=== PATIENT | male | born 1985 | race Caucasian/White ===

== ENCOUNTER → 2018-02-28 | Day surgery (SDC) | payer OTHER ==
[~2018-02-28] MED LIST: Iopamidol-M 200 41% 20 ML VIAL ONE
[2018-02-28 07:48] VITALS: TEMP 97.1; BMI 26.1
--- NOTE | 2018-02-28 09:16 | RAD ---
LUMBAR SPINE MYELOGRAM: INDICATION: Lumbar radiculopathy. FLUOROSCOPY DATA: Intermittent fluoroscopy for 0.2 minutes. 33 mGy per M2. PROCEDURE: After informed consent had been obtained, the patient was escorted to the interventional suite and pl aced on the procedural table. Filtrose Crusher imaging was performed. The patient was placed into a prone posi tion. Skin on the low back was then prepped and draped in the standard sterile fashion and topical a nd regional soft tissue anesthesia was achieved with 1% lidocaine and sodium bicarbonate. L2-L3 right interlaminar approach was selected, and a 22 gauge needle was uneventfully advanced into the thecal sac with clear color CSF. Subsequently, 8 cc Isovue-M200 was instilled into the thecal sac under da l time fluoroscopy. Appropriate opacification of thecal sac demonstrated with imaging stored for con firmation. The needle was then removed from the patient. The patient tolerated the procedure well a nd was then transferred to CT to undergo subsequent myelogram. Reference separate report for full de tails. IMPRESSION: Technically successful lumbar myelogram as detailed above. POS: [facility]
--- NOTE | 2018-02-28 09:26 | CT ---
CT LUMBAR SPINE WITH CONTRAST: CT LUMBAR MYELOGRAM: CLINICAL HISTORY: Low back pain. Lumbar disk degeneration. Prior lumbar surgery. TECHNIQUE: Please reference separate report for procedural details of the patient's preceding fluoroscopic myelo gram of the lumbar spine. FINDINGS: The vertebral body heights of the lumbar spine are maintained. There is an intervertebral disk space device at L5-S1. There is mild associated disk space narrowing as well as endplate sclerosis of inf erior L5 and superior S1. No subluxation. There is left-sided posterior fusion of L4 and L5 without hardware complication identified. L5-S1: There is no significant compromise of the central canal. There is mild bilateral facet hyper trophy. No high grade foraminal stenosis. L4-L5: There is a broad-based disk bulge, as well as a mild osteophyte ridge, which results in mild central canal stenosis. Mild crowding of the bilateral nerve roots within the subarticular zones. N o high grade foraminal stenosis. L3-L4: There is no high grade central canal or foraminal stenosis. L2-L3: No high grade central canal or neural foraminal narrowing. L1-L2: No high grade central canal or neural foraminal stenosis. The conus medullaris is normal in morphology and terminates at the L1-L2 level. IMPRESSION: 1. Postoperative findings of the lumbosacral spine. 2. There is mild disk degenerative disease at L4-L5. POS: [facility]
== END ==
LOC: EDSTATUS 02-16 08:00 → RAD 07:20
PROVIDERS: ATTEND Neurological Surgery
PROC: B02B1ZZ Computerized Tomography (CT Scan) of Spinal Cord using Low Osmolar Contrast (ICD-10-PCS; principal; 2018-02-28)
DX: M51.36 Other intervertebral disc degeneration, lumbar region (principal); F17.210 Nicotine dependence, cigarettes, uncomplicated; Z91.018 Allergy to other foods; Z98.1 Arthrodesis status; Z88.6 Allergy status to analgesic agent; Z88.8 Allergy status to other drugs, medicaments and biological substances
CPT/HCPCS: 62304; 72132